=== PATIENT | female | born 1980 | race Caucasian/White ===

== ENCOUNTER 2018-10-17 16:15 | Inpatient (IN) | payer OTHER ==
[2018-10-17 18:47] VITALS: BMI 23.0
--- NOTE | 2018-10-17 20:32 | HP ---
COWS - Scale Resting Pulse: 1= OK 81-100 Sweatin= Chills/Flushing Restless Observation: 3= Extraneous Movement Pupil Size: 0= Normal to Room Light Bone or Joint Aches: 4=Acute Joint/Muscle Pain Runny Nose/ Eye Tearin= Runny Nose/Eyes GI Upset > 30mins: 1= Stomach Cramp Tremor Observation: 1= Tremor [place], Not Seen Yawning Observation: 1= 1-2x During Session Anxiety or Irritability: 2=Irritable/Anxious Goose Flesh Skin: 0=Smooth Skin COWS Score: 16 CIWA Score - Admission Criteria OASAS Guidelines: Admission for Medically Managed Detox: Requires at least one of the followin. CIWA greater than 12 2. Seizures within the past 24 hours 3. Delirium tremens within the past 24 hours 4. Hallucinations within the past 24 hours 5. Acute intervention needed for co occurring medical disorder 6. Acute intervention needed for co occurring psychiatric disorder 7. Severe withdrawal that cannot be handled at a lower level of care (continued vomiting, continued diarrhea, abnormal vital signs) requiring intravenous medication and/or fluids 8. Admission ROS [facility] Chief Complaint: C/O WORSENING WITHDRAWAL SX'S. SEEKING DETOX TXMENT Allergies/Adverse Reactions: Allergies Allergy/AdvReac Type Severity Reaction Status Date / Time No Known Allergies Allergy Verified 10/17/18 18:36 History of Present Illness: 38 Y.O. FEMLAE WITH OPIOID DEPENDENCE HERE FOR DETOX. CLIENT IS REFERRED BY OUTREACH. REPORTS LAST INPATIENT TXMENT A MONTH AGO AT [facility]. PRESENTS TODAY WITH C/O WITHDRAWAL SX'S. COWS 16. LAST USED [facility] EARLIER TODAY. LONGEST CLEAN TIME 1 YEAR/7 YEARS AGO. REPORTS DAILY USE. DENIES HX/O DRUG OVERDOSE, SI/HI/ AVH. DOMICILED, EMPLOYED- FACE [employer], DENIES LEGALS. Exam Limitations: No Limitations - Ebola screening Have you traveled outside of the country in the last 21 days: No Have you had contact with anyone from an Ebola affected area: No Do you have a fever: No - Review of Systems Constitutional: Chills, Loss of Appetite, Malaise, Night Sweats, Changes in sleep, Unintentional Wgt. Loss EENT: reports: Throat Pain, Other (WATERY EYES) Respiratory: reports: No Symptoms reported Cardiac: reports: No Symptoms Reported GI: reports: Abdominal cramping : reports: Other (HESITANCY) Musculoskeletal: reports: Back Pain, Joint Pain, Neck Pain Integumentary: reports: No Symptoms Reported Neuro: reports: Headache, Tremors Endocrine: reports: No Symptoms Reported Hematology: reports: Anemia (HX/O) Psychiatric: reports: Orientated x3, Agitated (IRRITABLE), Anxious, Depressed Other Systems: Reviewed and Negative Patient History - Patient Medical History Hx Anemia: Yes Hx Asthma: No Hx Chronic Obstructive Pulmonary Disease (COPD): No Hx Cancer: No Hx Cardiac Disorders: No Hx Congestive Heart Failure: No Hx Hypertension: No Hx Hypercholesterolemia: No Hx Pacemaker: No HX Cerebrovascular Accident: No Hx Seizures: No Hx Dementia: No Hx Diabetes: No Hx Gastrointestinal Disorders: Yes (?IBS) Hx Liver Disease: No Hx Genitourinary Disorders: No Hx Sexually Transmitted Disorders: No Hx Renal Disease (ESRD): No Hx Thyroid Disease: No Hx Human Immunodeficiency Virus (HIV): No Hx Hepatitis C: No Hx Depression: Yes Hx Suicide Attempt: No Hx Bipolar Disorder: No Hx Schizophrenia: No Other Medical History: BORDERLINE PERSONALITY D/O - Patient Surgical History Past Surgical History: No - PPD History Previous Implant?: Yes Documented Results: Negative w/o proof Implanted On Prior [facility] Admission?: No PPD to be Administered?: Yes - Reproductive History Patient is a Female of Child Bearing Age (11 -55 yrs old): Yes Last Menstrual Period: 09/05/18 LMP comment: IRREG Patient : No (NEG IHCG) - Smoking Cessation Smoking history: Current every day smoker Have you smoked in the past 12 months: Yes Aproximately how many cigarettes per day: 10 Cigars Per Day: 0 Hx Chewing Tobacco Use: No Initiated information on smoking cessation: Yes 'Breaking Loose' booklet given: 10/17/18 - Substance & Tx. History Hx Alcohol Use: No Hx Substance Use: Yes Substance Use Type: Heroin Hx Substance Use Treatment: Yes ([facility]) - Substances abused Heroin Substance route: Injection Frequency: Daily Amount used: 20-25 BAGS Age of first use: 30 Date of last use: 10/17/18 Family Disease History - Family Disease History Family Disease History: Other: Father (DEPRESSION), Mother (ALCOHOLIC/DRUGS), Brother (ALCOHOLIC/DEPRESSION) Admission Physical Exam BHS - Vital Signs Vital Signs: Vital Signs - 24 hr 10/17/18 10/17/18 18:28 19:19 Temperature 97.8 F 97.8 F Pulse Rate 81 81 Respiratory 18 18 Rate Blood Pressure 116/69 116/69 - Physical General Appearance: Yes: Appropriately Dressed, Moderate Distress, Tremorous, Irritable, Anxious HEENTM: Yes: EOMI, Normocephalic, Normal Voice, BARRY, Pharynx Normal, Rhinorrhea Respiratory: Yes: Chest Non-Tender, Lungs Clear, Normal Breath Sounds, No Respiratory Distress, No Accessory Muscle Use Neck: Yes: No masses,lesions,Nodules, Supple, Trachea in good position Breast: Yes: Breast Exam Deferred Cardiology: Yes: Regular Rhythm, Regular Rate, S1, S2 Abdominal: Yes: Non Tender, Soft, Increased Bowel Sounds Genitourinary: Yes: Hesitency (C/O) Back: Yes: Normal Inspection Musculoskeletal: Yes: full range of Motion, Gait Steady, Other (C/O JOINT PAIN) Extremities: Yes: Normal Capillary Refill, Normal Range of Motion, Non-Tender, Tremors Neurological: Yes: Fully Oriented, Alert, Motor Strength 5/5, Depressed Affect Integumentary: Yes: Cold, Track Griffith (old scarred track amna to both arms), Other (swollen indurated upper arms/ r and l shoulders from injecting. warm to touch with redness will treat for cellulitis) Lymphatic: Yes: Within Normal Limits - Diagnostic (1) Opioid dependence with withdrawal Current Visit: Yes Status: Acute (2) Nicotine dependence Current Visit: Yes Status: Acute Qualifiers: Nicotine product type: cigarettes Substance use status: uncomplicated Qualified Code(s): F17.210 - Nicotine dependence, cigarettes, uncomplicated (3) Depressed affect Current Visit: Yes Status: Acute (4) At risk for dehydration due to poor fluid intake Current Visit: Yes Status: Acute (5) Substance induced mood disorder Current Visit: Yes Status: Acute (6) Cellulitis, upper arm Current Visit: Yes Status: Acute Cleared for Admission S - Detox or Rehab [facility] Level of Care: Medically Managed Detox Regimen/Protocol: Methadone Claeared for Rehab Admission: No Breathalyzer - Breathalyzer Breathalyzer: 0 Urine Drug Screen - Test Device Lot number: [id number] Expiration date: 07/07/20 - Control Is test valid?: Yes - Results Drug screen NEGATIVE: No Urine drug screen results: MOP-Opiates, OXY-Oxycodone Inpatient Rehab Admission - Rehab Decision to Admit Inpatient rehab admission?: No
[2018-10-17] MEDS ORDERED: IBUPROFEN 400 MG TABLET (FP) PO PRN ×2 (20:36)
[2018-10-17] MEDS ORDERED: MAGNESIUM HYDROX 2400MG/30ML ORAL SUSPENSION 30 ML CUP PO PRN (20:36)
[2018-10-17] MEDS ORDERED: ACETAMINOPHEN 325 MG TABLET (FP) PO PRN ×2 (20:36)
[2018-10-17] MEDS ORDERED: cloNIDine HCL 0.1 MG TABLET PO PRN (20:36)
[2018-10-17] MEDS ORDERED: guaiFENesin 200 MG/10 ML 10 ML UNIT-DOSE CUPS PO PRN (20:36)
[2018-10-17] MEDS ORDERED: BISMUTH SUBSALICYLATE 524 MG/30 ML UD PO PRN (20:36)
[2018-10-17] MEDS ORDERED: NICOTINE POLACRILEX 2 MG GUM BUC PRN (20:36)
[2018-10-17] MEDS ORDERED: DICYCLOMINE HCL 10 MG CAPSULE PO PRN (20:36)
[2018-10-17] MEDS ORDERED: NALOXONE HCL 0.4 MG/ML VIAL IVPUSH PRN (20:36)
[2018-10-17] MEDS ORDERED: MAG HYDROX/AL HYDROX/SIMETH 30 ML UNIT-DOSE CUP PO PRN (20:36)
[2018-10-17] MEDS ORDERED: MAGNESIUM CITRATE 300 ML BOTTLE PO PRN (20:36)
[2018-10-17] MEDS ORDERED: P-EPHED 60MG/TRIPROLIDI 2.5MG TABLET PO PRN (20:36)
[2018-10-17] MEDS ORDERED: MENTHOL/PHENOL 1 EACH UD MM PRN (20:36)
[2018-10-17] MEDS ORDERED: ONDANSETRON *ODT* 4 MG TABLET SL PRN (20:36)
[2018-10-17] MEDS ORDERED: METHADONE HCL 10 MG TABLET (FOR DETOX USE ONLY) PO ONE ×2 (20:39→23:00)
[2018-10-17] MEDS: THIAMINE HCL 100 MG TABLET (FP) PO SCH (21:58)
[2018-10-17] MEDS: AMOXICILLIN 500 MG CAPSULE (FP) PO SCH (22:37)
[2018-10-18 00:53] LABS: PH,URINE 6.5 (5.0-8.0); URINE APPEARANCE CLEAR; URINE BILIRUBIN NEGATIVE (NEGATIVE); URINE COLOR YELLOW; URINE GLUCOSE (UA) NEGATIVE (NEGATIVE); URINE KETONE NEGATIVE (NEGATIVE); URINE LEUK ESTERASE NEGATIVE (NEGATIVE); URINE NITRITE NEGATIVE (NEGATIVE); URINE PROTEIN NEGATIVE (NEGATIVE); URINE UROBILINOGEN 0.2 mg/dL (0.2-1.0)
[2018-10-18] MEDS: PRENATAL VITAMINS W/ FOLIC ACID TABLET (FP) PO SCH (09:54)
[2018-10-18] MEDS: GABAPENTIN 100 MG CAPSULE (FP) PO SCH ×3 (09:54→21:00)
[2018-10-18] MEDS: hydrOXYzine PAMOATE 25 MG CAPSULE (FP) PO PRN ×2 (09:54→21:00)
[2018-10-18] MEDS ORDERED: DOXYCYCLINE HYCLATE 20 MG PO SCH (10:00)
[2018-10-18] MEDS ORDERED: METHADONE HCL 10 MG TABLET (FOR DETOX USE ONLY) PO ONE (10:00)
[2018-10-18] MEDS: AMOXICILLIN 500 MG CAPSULE (FP) PO SCH ×2 (10:25→21:03)
--- NOTE | 2018-10-18 11:14 | PN ---
BHS COWS - Scale Resting Pulse: 2= CO 101-120 Sweatin= Chills/Flushing Restless Observation: 1= Difficult to Sit Still Pupil Size: 1= Pupils >than Normal Bone or Joint Aches: 1= Mild Discomfort Runny Nose/ Eye Tearin= None GI Upset > 30mins: 1= Stomach Cramp Tremor Observation of Outstretched Hands: 1= Tremor [place], Not Seen Yawning Observation: 2= >3x During Session Anxiety or Irritability: 2=Irritable/Anxious Goose Flesh Skin: 3=Piloerection COWS Score: 15 BHS Progress Note (SOAP) Subjective: body aches tremor restlessness Objective: 10/18/18 11:14 Vital Signs Temperature 98.1 F 10/18/18 09:36 Pulse Rate 107 H 10/18/18 09:36 Respiratory Rate 18 10/18/18 09:36 Blood Pressure 103/65 10/18/18 09:36 O2 Sat by Pulse Oximetry (%) Laboratory Last Values Urine Color Yellow 10/18/18 00:03 Urine Appearance Clear 10/18/18 00:03 Urine pH 6.5 (5.0-8.0) 10/18/18 00:03 Ur Specific [place] 1.008 (1.010-1.035) L 10/18/18 00:03 Urine Protein Negative (NEGATIVE) 10/18/18 00:03 Urine Glucose (UA) Negative (NEGATIVE) 10/18/18 00:03 Urine Ketones Negative (NEGATIVE) 10/18/18 00:03 Urine Blood Negative (NEGATIVE) 10/18/18 00:03 Urine Nitrite Negative (NEGATIVE) 10/18/18 00:03 Urine Bilirubin Negative (NEGATIVE) 10/18/18 00:03 Urine Urobilinogen 0.2 mg/dL (0.2-1.0) 10/18/18 00:03 Ur Leukocyte Esterase Negative (NEGATIVE) 10/18/18 00:03 10/18/18 11:15 lab pending Assessment: 10/18/18 11:15 opiate withdrawal sx Plan: continue detox
--- NOTE | 2018-10-18 12:14 | EKG ---
Test Reason : Blood Pressure : / mmHG Vent. Rate : 087 BPM Atrial Rate : 087 BPM P-R Int : 138 ms QRS Dur : 102 ms QT Int : 384 ms P-R-T Axes : 029 043 034 degrees QTc Int : 462 ms NORMAL SINUS RHYTHM INCOMPLETE RIGHT BUNDLE BRANCH BLOCK BORDERLINE ECG NO PREVIOUS ECGS AVAILABLE Confirmed by MD Hector, Darci ([id number]) on 10/18/2018 12:14:04 PM Referred By: Confirmed By:Darci Young MD
[2018-10-18 12:21] LABS: HEMATOCRIT 38.4 % (32.4-45.2); HEMOGLOBIN 12.7 GM/dL (10.7-15.3); MCH 30.2 pg (25.7-33.7); MEAN CELL VOLUME 91.4 fl (80-96); MEAN PLT VOLUME 8.7 fl (7.5-11.1); PLATELET COUNT 260 K/MM3 (134-434)
[2018-10-18 12:33] LABS: ALBUMIN 3.4 g/dl (3.4-5.0); BILIRUBIN,TOTAL 0.8 mg/dL (0.2-1); CALCIUM 8.8 mg/dL (8.5-10.1); CREATININE 0.6 mg/dL (0.55-1.3); POTASSIUM 4.1 mmol/L (3.5-5.1); TOT PROT 6.2 g/dl (6.4-8.2)
[2018-10-18] MEDS: NICOTINE 14 MG/24 HOURS TOPICAL PATCH TD SCH (14:02)
[2018-10-18] MEDS: METHOCARBAMOL 500 MG TABLET PO PRN ×2 (15:37→21:00)
--- NOTE | 2018-10-18 18:04 | CONSULT ---
[facility] Psychiatric Consult - Data Date of interview: 10/18/18 Admission source: [facility] Identifying data: First admission to [facility] for this 38 y/o female self-referred for detoxification (heroin). Interviewed at [address] [place] [address]. Patient is single, no children, domiciled and employed. Substance Abuse History: Confirmed by patient in this interview : Smoking history: Current every day smoker. Have you smoked in the past 12 months: Yes. Aproximately how many cigarettes per day: 10. Cigars Per Day: 0. Hx Chewing Tobacco Use: No. Initiated information on smoking cessation: Yes. 'Breaking Loose' booklet given: 10/17/18. - Substance & Tx. History. Hx Alcohol Use: No. Hx Substance Use: Yes. Substance Use Type: Heroin. Hx Substance Use Treatment: Yes ([facility]). - Substances abused. Heroin. Substance route : Injection. Frequency: Daily. Amount used: 20-25 BAGS. Age of first use: 30. Date of last use: 10/17/18 Medical History: Patient endorses good general health. Psychiatric History: History of one psychiatric hospitalization ([facility] in [facility]). Patient is reportedly diagnosed with MDD and Borderline Personality Disorder. Medicated with cymbalta 30 mg/day. Ms Camacho indicates that she has no contact with psychiatric OPD care providers (cymbalta is prescribed by her primary care doctor). No reported history of suicide attempts. Physical/Sexual Abuse/Trauma History: Not discussed : patient not cooperative. Additional Comment: Urine drug screen results: MOP-Opiates, OXY-Oxycodone. Noted. Mental Status Exam - Mental Status Exam Alert and Oriented to: Time, Place, Person Cognitive Function: Grossly Intact Patient Appearance: Unkempt, Disheveled Mood: Hostile, Nervous, Withdrawn, Anxious, Irritable Affect: Mood Congruent, Constricted Patient Behavior: Fatigued, Uncooperative Speech Pattern: Clear Voice Loudness: Normal Thought Process: Goal Oriented Thought Disorder: Not Present Hallucinations: Denies Suicidal Ideation: Denies Homicidal Ideation: Denies Insight/Judgement: Poor Sleep: Fair Appetite: Poor Gait/Station: Other (not observed) Psychiatric Findings - Problem List ([place] 1, 2,3) (1) Opioid dependence with withdrawal Current Visit: Yes Status: Acute (2) Nicotine dependence Current Visit: Yes Status: Chronic Qualifiers: Nicotine product type: cigarettes Substance use status: uncomplicated Qualified Code(s): F17.210 - Nicotine dependence, cigarettes, uncomplicated (3) Substance induced mood disorder Current Visit: Yes Status: Chronic - Initial Treatment Plan Initial Treatment Plan: Psychoeducation. Sleep hygiene. Detoxification. Cymbalta 30 mg po daily (patient's request). Side effects/benefits briefly discussed with the patient. Verbal consent given to MD. Observation. Medication confirmed (refill issued on 09/09/18 for duloxetine 30 mg/30 days at [facility] # [id number]).
[2018-10-18] MEDS: MELATONIN 5 MG TABLETS PO PRN (21:00)
[2018-10-18] MEDS: THIAMINE HCL 100 MG TABLET (FP) PO SCH (21:01)
[2018-10-18] MEDS: DOXYCYCLINE HYCLATE 20 MG PO SCH (21:04)
[2018-10-19] MEDS: METHOCARBAMOL 500 MG TABLET PO PRN ×2 (07:00→22:15)
[2018-10-19] MEDS: hydrOXYzine PAMOATE 25 MG CAPSULE (FP) PO PRN ×3 (07:00→17:57)
[2018-10-19] MEDS: GABAPENTIN 100 MG CAPSULE (FP) PO SCH ×3 (09:53→22:11)
[2018-10-19] MEDS: PRENATAL VITAMINS W/ FOLIC ACID TABLET (FP) PO SCH (09:53)
[2018-10-19] MEDS: DULoxetine HCL 30 MG CAPSULE.DR (FP) PO SCH (09:54)
[2018-10-19] MEDS: DOXYCYCLINE HYCLATE 20 MG PO SCH ×2 (09:54→22:12)
[2018-10-19] MEDS ORDERED: METHADONE HCL 10 MG TABLET (FOR DETOX USE ONLY) PO ONE (10:00)
[2018-10-19] MEDS: NICOTINE 14 MG/24 HOURS TOPICAL PATCH TD SCH (10:47)
[2018-10-19] MEDS: AMOXICILLIN 500 MG CAPSULE (FP) PO SCH ×2 (10:48→22:12)
--- NOTE | 2018-10-19 13:51 | PN ---
BHS COWS - Scale Resting Pulse: 2= ME 101-120 Sweatin= Chills/Flushing Restless Observation: 0= Sits Still Pupil Size: 0= Normal to Room Light Bone or Joint Aches: 1= Mild Discomfort Runny Nose/ Eye Tearin= Nasal Congestion GI Upset > 30mins: 1= Stomach Cramp Tremor Observation of Outstretched Hands: 2= Slight Tremor Visible Yawning Observation: 1= 1-2x During Session Anxiety or Irritability: 2=Irritable/Anxious Goose Flesh Skin: 0=Smooth Skin COWS Score: 11 S Progress Note (SOAP) Subjective: patient wants symbalta that she was taking symbalta and was doing well sober from opiate x 1 years recent relapse last dose unknown seen by psychiatrist possible resume symbalta Objective: 10/19/18 13:50 Vital Signs Temperature 99.1 F 10/19/18 13:46 Pulse Rate 95 H 10/19/18 13:46 Respiratory Rate 18 10/19/18 13:46 Blood Pressure 100/59 L 10/19/18 13:46 O2 Sat by Pulse Oximetry (%) Laboratory Last Values WBC 10.0 K/mm3 (4.0-10.0) 10/18/18 07:30 RBC 4.20 M/mm3 (3.60-5.2) 10/18/18 07:30 Hgb 12.7 GM/dL (10.7-15.3) 10/18/18 07:30 Hct 38.4 % (32.4-45.2) 10/18/18 07:30 MCV 91.4 fl (80-96) 10/18/18 07:30 MCH 30.2 pg (25.7-33.7) 10/18/18 07:30 MCHC 33.0 g/dl (32.0-36.0) 10/18/18 07:30 RDW 13.0 % (11.6-15.6) 10/18/18 07:30 Plt Count 260 K/MM3 (134-434) 10/18/18 07:30 MPV 8.7 fl (7.5-11.1) 10/18/18 07:30 Sodium 142 mmol/L (136-145) 10/18/18 07:30 Potassium 4.1 mmol/L (3.5-5.1) 10/18/18 07:30 Chloride 107 mmol/L (98-107) 10/18/18 07:30 Carbon Dioxide 31 mmol/L (21-32) 10/18/18 07:30 Anion Gap 5 MMOL/L (8-16) L 10/18/18 07:30 BUN 9 mg/dL (7-18) 10/18/18 07:30 Creatinine 0.6 mg/dL (0.55-1.3) 10/18/18 07:30 Est GFR (CKD-EPI)AfAm 133.07 10/18/18 07:30 Est GFR (CKD-EPI)NonAf 114.82 10/18/18 07:30 Random Glucose 81 mg/dL (74-106) 10/18/18 07:30 Calcium 8.8 mg/dL (8.5-10.1) 10/18/18 07:30 Total Bilirubin 0.8 mg/dL (0.2-1) 10/18/18 07:30 AST 17 U/L (15-37) 10/18/18 07:30 ALT 14 U/L (13-61) 10/18/18 07:30 Alkaline Phosphatase 60 U/L (45-117) 10/18/18 07:30 Total Protein 6.2 g/dl (6.4-8.2) L 10/18/18 07:30 Albumin 3.4 g/dl (3.4-5.0) 10/18/18 07:30 Urine Color Yellow 10/18/18 00:03 Urine Appearance Clear 10/18/18 00:03 Urine pH 6.5 (5.0-8.0) 10/18/18 00:03 Ur Specific [place] 1.008 (1.010-1.035) L 10/18/18 00:03 Urine Protein Negative (NEGATIVE) 10/18/18 00:03 Urine Glucose (UA) Negative (NEGATIVE) 10/18/18 00:03 Urine Ketones Negative (NEGATIVE) 10/18/18 00:03 Urine Blood Negative (NEGATIVE) 10/18/18 00:03 Urine Nitrite Negative (NEGATIVE) 10/18/18 00:03 Urine Bilirubin Negative (NEGATIVE) 10/18/18 00:03 Urine Urobilinogen 0.2 mg/dL (0.2-1.0) 10/18/18 00:03 Ur Leukocyte Esterase Negative (NEGATIVE) 10/18/18 00:03 POC Urine HCG, Qual Negative 10/17/18 19:33 RPR Titer Nonreactive (NONREACTIVE) 10/18/18 07:30 lab noted Assessment: 10/19/18 13:50 withdrawal sx Plan: continue detox
[2018-10-19] MEDS: THIAMINE HCL 100 MG TABLET (FP) PO SCH (22:11)
[2018-10-19] MEDS: MELATONIN 5 MG TABLETS PO PRN (22:13)
[2018-10-20] MEDS: hydrOXYzine PAMOATE 25 MG CAPSULE (FP) PO PRN ×3 (03:54→22:19)
[2018-10-20] MEDS ORDERED: METHADONE HCL 10 MG TABLET (FOR DETOX USE ONLY) PO ONE (10:00)
[2018-10-20] MEDS: PRENATAL VITAMINS W/ FOLIC ACID TABLET (FP) PO SCH (10:03)
[2018-10-20] MEDS: AMOXICILLIN 500 MG CAPSULE (FP) PO SCH ×2 (10:03→22:16)
[2018-10-20] MEDS: DULoxetine HCL 30 MG CAPSULE.DR (FP) PO SCH (10:03)
[2018-10-20] MEDS: DOXYCYCLINE HYCLATE 20 MG PO SCH ×2 (10:03→22:16)
[2018-10-20] MEDS: GABAPENTIN 100 MG CAPSULE (FP) PO SCH ×3 (10:04→22:16)
[2018-10-20] MEDS: NICOTINE 14 MG/24 HOURS TOPICAL PATCH TD SCH (10:05)
--- NOTE | 2018-10-20 14:25 | PN ---
BHS COWS - Scale Resting Pulse: 0= OK 80 or Below Sweatin= Chills/Flushing Restless Observation: 0= Sits Still Pupil Size: 0= Normal to Room Light Bone or Joint Aches: 1= Mild Discomfort Runny Nose/ Eye Tearin= Nasal Congestion GI Upset > 30mins: 1= Stomach Cramp Tremor Observation of Outstretched Hands: 1= Tremor [place], Not Seen Yawning Observation: 0= None Anxiety or Irritability: 1=Feels Anxious/Irritable Goose Flesh Skin: 0=Smooth Skin COWS Score: 6 BHS Progress Note (SOAP) Subjective: feeling better discuss aftercare with staff Objective: 10/20/18 14:27 Vital Signs Temperature 97.7 F 10/20/18 09:51 Pulse Rate 77 10/20/18 09:51 Respiratory Rate 18 10/20/18 09:51 Blood Pressure 86/57 L 10/20/18 09:51 O2 Sat by Pulse Oximetry (%) Laboratory Last Values WBC 10.0 K/mm3 (4.0-10.0) 10/18/18 07:30 RBC 4.20 M/mm3 (3.60-5.2) 10/18/18 07:30 Hgb 12.7 GM/dL (10.7-15.3) 10/18/18 07:30 Hct 38.4 % (32.4-45.2) 10/18/18 07:30 MCV 91.4 fl (80-96) 10/18/18 07:30 MCH 30.2 pg (25.7-33.7) 10/18/18 07:30 MCHC 33.0 g/dl (32.0-36.0) 10/18/18 07:30 RDW 13.0 % (11.6-15.6) 10/18/18 07:30 Plt Count 260 K/MM3 (134-434) 10/18/18 07:30 MPV 8.7 fl (7.5-11.1) 10/18/18 07:30 Sodium 142 mmol/L (136-145) 10/18/18 07:30 Potassium 4.1 mmol/L (3.5-5.1) 10/18/18 07:30 Chloride 107 mmol/L (98-107) 10/18/18 07:30 Carbon Dioxide 31 mmol/L (21-32) 10/18/18 07:30 Anion Gap 5 MMOL/L (8-16) L 10/18/18 07:30 BUN 9 mg/dL (7-18) 10/18/18 07:30 Creatinine 0.6 mg/dL (0.55-1.3) 10/18/18 07:30 Est GFR (CKD-EPI)AfAm 133.07 10/18/18 07:30 Est GFR (CKD-EPI)NonAf 114.82 10/18/18 07:30 Random Glucose 81 mg/dL (74-106) 10/18/18 07:30 Calcium 8.8 mg/dL (8.5-10.1) 10/18/18 07:30 Total Bilirubin 0.8 mg/dL (0.2-1) 10/18/18 07:30 AST 17 U/L (15-37) 10/18/18 07:30 ALT 14 U/L (13-61) 10/18/18 07:30 Alkaline Phosphatase 60 U/L (45-117) 10/18/18 07:30 Total Protein 6.2 g/dl (6.4-8.2) L 10/18/18 07:30 Albumin 3.4 g/dl (3.4-5.0) 10/18/18 07:30 Urine Color Yellow 10/18/18 00:03 Urine Appearance Clear 10/18/18 00:03 Urine pH 6.5 (5.0-8.0) 10/18/18 00:03 Ur Specific [place] 1.008 (1.010-1.035) L 10/18/18 00:03 Urine Protein Negative (NEGATIVE) 10/18/18 00:03 Urine Glucose (UA) Negative (NEGATIVE) 10/18/18 00:03 Urine Ketones Negative (NEGATIVE) 10/18/18 00:03 Urine Blood Negative (NEGATIVE) 10/18/18 00:03 Urine Nitrite Negative (NEGATIVE) 10/18/18 00:03 Urine Bilirubin Negative (NEGATIVE) 10/18/18 00:03 Urine Urobilinogen 0.2 mg/dL (0.2-1.0) 10/18/18 00:03 Ur Leukocyte Esterase Negative (NEGATIVE) 10/18/18 00:03 POC Urine HCG, Qual Negative 10/17/18 19:33 RPR Titer Nonreactive (NONREACTIVE) 10/18/18 07:30 lab noted Assessment: 10/20/18 14:[address] [facility] narcan kit from pharmacy Plan: continue detox medication assisted treatment program
[2018-10-20] MEDS: METHOCARBAMOL 500 MG TABLET PO PRN ×2 (15:22→22:19)
[2018-10-20] MEDS: THIAMINE HCL 100 MG TABLET (FP) PO SCH (22:16)
[2018-10-20] MEDS: MELATONIN 5 MG TABLETS PO PRN (22:17)
[2018-10-21] MEDS: METHOCARBAMOL 500 MG TABLET PO PRN (05:04)
[2018-10-21] MEDS ORDERED: METHADONE HCL 5 MG TABLET (FOR DETOX USE ONLY) PO ONE (06:00)
[2018-10-21 06:40] VITALS: BP 113/80; PULSE 100; TEMP 97
== END 2018-10-21 06:51 | disposition home or self-care (01) | DRG 773 ==
LOC: YASAS 16:15 → Y3N 20:52
PROVIDERS: ADMIT Surgery; ATTEND Surgery
PROC: HZ2ZZZZ Detoxification Services for Substance Abuse Treatment (ICD-10-PCS; principal; 2018-10-17)
DX: F11.23 Opioid dependence with withdrawal (principal); F17.210 Nicotine dependence, cigarettes, uncomplicated; F19.24 Other psychoactive substance dependence with psychoactive substance-induced mood disorder; F32.9 Major depressive disorder, single episode, unspecified; R63.8 Other symptoms and signs concerning food and fluid intake; L03.114 Cellulitis of left upper limb; L03.113 Cellulitis of right upper limb
CPT/HCPCS: 36415; 80053; 81003; 81025; 85027; 86593; 93005; 93010; J0735